=== PATIENT | female | born 1970 | race American Indian/Alaskan Native ===

== ENCOUNTER 2016-03-05 16:39 | Emergency (ER) | payer BC ==
[2016-03-05 16:56] VITALS: BP 175/105
--- NOTE | 2016-03-05 17:49 | Emergency Department Report ---
Chief Complaint: Abdominal Pain Stated Complaint: EMESIS/NAUSEA/STOMACH PAIN Time Seen by Provider: 03/05/16 17:48 - HPI History of Present Illness: This is a 45-year-old female here complaining of nausea and vomiting and abdominal pain since 1 AM this morning. She denies any diarrhea. Denies any fever or chills. She says she tried milk of magnesia but she vomited up. Last menstrual period was 02/18/2016. Denies any urinary burning frequency or urgency. Pain is 8 out of 10 located above her umbilical area and it feels like pressure. - ROS Review of Systems: All systems are negative unless stated in HPI above. - Exam Vital Signs: Vital Signs 03/05/16 16:53 Temperature 98.6 F Pulse Rate 88 Respiratory 19 Rate Blood Pressure 175/105 O2 Sat by Pulse 99 Oximetry Physical Exam: General: 5-year-old female well-nourished well-developed in no acute distress. CV: S1, S2. Regular rate and rhythm. BP is 175/105 Abdomen: Tender to palpate in mid upper abdominal area. Normal bowel sounds in all quadrants. No CVA tenderness bilaterally. MSE screening note: Focused history and physical exam performed. Due to findings the following was ordered:see mdm ED Medical Decision Making - Medical Decision Making Medical decision making: Patient seen by provider in triage area. Appropriate protocol activated and patient to main ED to be seen by physician. ED Disposition for MSE Condition: Stable Instructions: Abdominal Pain (ED)
[2016-03-05 18:43] LABS: Bilirubin,Urine NEG (Negative); Blood,Urine NEG (Negative); Ketones,Urine 20 mg/dL (Negative); Leukocyte Esterase,Urine NEG (Negative); Mucus,Urine 2+ /HPF; Nitrite,Urine NEG (Negative); Urobilinogen,Urine < 2.0 mg/dL (<2.0)
[2016-03-05 18:50] LABS: Basophils % (Auto) 0.3 % (0.0-1.8); Eosinophils % (Auto) 0.1 % (0.0-4.3); Hematocrit 36.9 % (30.3-42.9); Hemoglobin 11.6 gm/dl (10.1-14.3); Mean Corpuscular HGB Conc 32 % (30-34); Mean Corpuscular Hemoglobin 23 pg (28-32); Mean Corpuscular Volume 73 fl (79-97); Platelet Count 437 K/mm3 (140-440); Red Blood Count 5.06 M/mm3 (3.65-5.03); Red Cell Distribution Width 16.2 % (13.2-15.2); White Blood Count 11.6 K/mm3 (4.5-11.0)
[2016-03-05 19:00] LABS: Alanine Aminotransferase 10 units/L (7-56); Albumin 4.3 g/dL (3.9-5); Albumin/Globulin Ratio 1.1 %; Alkaline Phosphatase 68 units/L (35-129); Bilirubin,Total 0.4 mg/dL (0.1-1.2); Blood Urea Nitrogen 7 mg/dL (7-17); Calcium 9.5 mg/dL (8.4-10.2); Carbon Dioxide 28 mmol/L (22-30); Chloride 95.7 mmol/L (98-107); Glucose 132 mg/dL (65-100); Lipase 21 units/L (13-60); Sodium 139 mmol/L (137-145); Total Protein 8.1 g/dL (6.3-8.2)
[2016-03-05 19:10] LABS: Anion Gap 18 mmol/L
--- NOTE | 2016-03-07 10:47 | ED Elopement Review ---
ED Pt Elopement review - Results review Lab results: Laboratory Tests 03/05/16 03/05/16 03/05/16 18:24 18:24 18:24 WBC 11.6 H RBC 5.06 H Hgb 11.6 Hct 36.9 MCV 73 L MCH 23 L MCHC 32 RDW 16.2 H Plt Count 437 Lymph % (Auto) 12.5 L Graham % (Auto) 5.9 Eos % (Auto) 0.1 Baso % (Auto) 0.3 Lymph # 1.5 Graham # 0.7 Eos # 0.0 Baso # 0.0 Seg Neutrophils % 81.2 H Seg Neutrophils # 9.4 H Sodium 139 Potassium 3.0 L Chloride 95.7 L Carbon Dioxide 28 Anion Gap 18 BUN 7 Creatinine 1.0 Estimated GFR > 60 BUN/Creatinine Ratio 7.00 Glucose 132 H Calcium 9.5 Total Bilirubin 0.4 AST 15 ALT 10 Alkaline Phosphatase 68 Total Protein 8.1 Albumin 4.3 Albumin/Globulin Ratio 1.1 Amylase Lipase 21 HCG, Qual Negative Urine Color Urine Turbidity Urine pH Ur Specific [place] Urine Protein Urine Glucose (UA) Urine Ketones Urine Blood Urine Nitrite Urine Bilirubin Urine Urobilinogen Ur Leukocyte Esterase Urine WBC (Auto) Urine RBC (Auto) U Epithel Cells (Auto) Urine Mucus 03/05/16 03/05/16 18:24 18:25 WBC RBC Hgb Hct MCV MCH MCHC RDW Plt Count Lymph % (Auto) Graham % (Auto) Eos % (Auto) Baso % (Auto) Lymph # Graham # Eos # Baso # Seg Neutrophils % Seg Neutrophils # Sodium Potassium Chloride Carbon Dioxide Anion Gap BUN Creatinine Estimated GFR BUN/Creatinine Ratio Glucose Calcium Total Bilirubin AST ALT Alkaline Phosphatase Total Protein Albumin Albumin/Globulin Ratio Amylase 88 Lipase HCG, Qual Urine Color Yellow Urine Turbidity Slightly-cloudy Urine pH 6.0 Ur Specific [place] 1.025 Urine Protein 100 mg/dl Urine Glucose (UA) 50 Urine Ketones 20 Urine Blood Neg Urine Nitrite Neg Urine Bilirubin Neg Urine Urobilinogen < 2.0 Ur Leukocyte Esterase Neg Urine WBC (Auto) 5.0 Urine RBC (Auto) 4.0 U Epithel Cells (Auto) 15.0 H Urine Mucus 2+ - Call Back decision Pt Call Back Decision: Pt to F/U with PMD (potassium 3.0. Follow-up with your primary care doctor for potassium supplements. Low potassium can aggravate constipation.)
== END 2016-03-05 19:45 | disposition left against medical advice (07) ==
LOC: ED 16:39
DX: R11.2 Nausea with vomiting, unspecified (principal); R10.9 Unspecified abdominal pain; Z53.21 Procedure and treatment not carried out due to patient leaving prior to being seen by health care provider
CPT/HCPCS: 36415; 80053; 81001; 82150; 83690; 84703; 85025